=== PATIENT | female | born 1955 | race Hispanic/Latino ===

== ENCOUNTER 2025-02-03 05:53 | Day surgery (SDC) | payer OTHER ==
[2025-02-03] VITALS (11 sets, daily range): BP systolic 104–151; BP diastolic 50–73; PULSE 48–57; RESP 14–18; TEMP 96.8–97.9
[~2025-02-03] VITALS: Ht 154.9 cm; Wt 64.9 kg
[~2025-02-03 05:53] MED LIST: AMLO2.5T4 PO; LOSA50TA64 PO; METO-408 PO
[2025-02-03] MEDS: 0.9%NACL 1000ML 1,000 ML IV ONE (06:37)
== END 2025-02-03 08:43 | disposition home or self-care (01) ==
LOC: DAH 05:53 → ENDO 05:53
PROVIDERS: ATTEND Internal Medicine Gastroenterology
DX: R13.10 Dysphagia, unspecified (principal); K29.50 Unspecified chronic gastritis without bleeding; I10 Essential (primary) hypertension; E78.5 Hyperlipidemia, unspecified; M81.0 Age-related osteoporosis without current pathological fracture; M19.90 Unspecified osteoarthritis, unspecified site; Z79.82 Long term (current) use of aspirin; Z88.1 Allergy status to other antibiotic agents
CPT/HCPCS: 43239; J7030; J2704; A4615; A4215; A4223; A4222; A4221; A4663; A4606; J3490